=== PATIENT | male | born 1985 | race Caucasian/White ===

== ENCOUNTER 2016-12-08 12:28 | Emergency (ER) | payer SELFPAY ==
--- NOTE | 2016-12-08 13:04 | EDM.PDOC ---
ED HPI ENT - General Chief Complaint: ENT Problem Stated Complaint: TOOTH PAIN Time Seen by Provider: 12/08/16 12:44 Source of Information: Reports: Patient History Limitations: Reports: No limitations - History of Present Illness INITIAL COMMENTS - FREE TEXT/NARRATIVE: Patient presents for evaluation and treatment of left lower tooth pain. Patient reports pain for several weeks. The pain is currently 3 or 4/10. He reports it is on the left lower tooth. He became concerned today when he noticed some discoloration to the surrounding gums. States the pain has been going on for several weeks. He was seen by a provider about 3 weeks ago. He was started on a month of amoxicillin. States that he has one week left. He's been taking 500 mg twice a day. He was also given some Peridex mouthwash which he has been using on occasion. He has been utilizing [id number] Tylenol and Motrin for pain but continues to have discomfort that sometimes keeps him up at night. He reports pain into the left sinuses. Denies any earaches or pains, fevers, chills , nausea or vomiting. Patient is in [place] visiting family. He is from [place]. Plans to see dental as soon as he is able to return to [place]. He states this will be in about 2 weeks. - Related Data Allergies/ADRs: Allergies Allergy/AdvReac Type Severity Reaction Status Date / Time No Known Allergies Allergy Verified 12/08/16 12:33 Home Meds: Home Meds Amoxicillin 12/08/16 [History] traMADol [Ultram] 50 mg PO Q6H #20 tablet 12/08/16 [Rx] Past Medical History - Past Health History Medical/Surgical History: Denies Medical/Surgical History Social & Family History - Family History Family Medical History: Noncontributory - Tobacco Use Smoking Status *Q: Unknown Ever Smoked - Recreational Drug Use Recreational Drug Use: No ED ROS ENT - Review of Systems Review Of Systems: See Below Constitutional: Denies: fever, chills HEENT: Reports: Dental pain (left lower molars), Sinus problem (left). Denies: Ear pain GI/Abdominal: Denies: Nausea, Vomiting ED EXAM, ENT - Physical Exam Exam: See Below Exam Limited By: No limitations General Appearance: alert, WD/WN, no apparent distress Ears: normal external exam, normal canal, hearing grossly normal, normal TMs Mouth/Throat: Normal inspection, Normal lips, Dental pain (#19), Dental tenderness (#19), Other (multiple missing teeth with multiple carries and fillings; fillings in #19). No: Dental abcess, Gum swelling Respiratory/Chest: no respiratory distress, lungs clear, normal breath sounds Cardiovascular: normal peripheral pulses, regular rate, rhythm, no murmur Neurological: alert, oriented, normal cognition Psychiatric: normal affect, normal mood Skin: Warm, Dry, Normal color Course - Vital Signs Last Recorded V/S: Last Vital Signs Temp 36.9 C 12/08/16 12:34 Pulse 80 12/08/16 12:34 Resp 18 12/08/16 12:34 BP 110/76 12/08/16 12:34 Pulse Ox 100 12/08/16 12:34 Departure - Departure Time of Disposition: 12:59 Disposition: Home, Self-Care 01 Condition: good Clinical Impression: Dental caries extending into dentin Prescriptions: traMADol [Ultram] 50 mg PO Q6H #20 tablet Instructions: Dental Caries, [id number] Referrals: PCP,None [Primary Care Provider] - Forms: ED Department Discharge Additional Instructions: OTC tylenol or motrin as needed for pain. Tramadol as needed for severe pain. 1 tab PO every 4-[address] machinery within 12 hours of taking the tramadol. Follow-up with dental as soon as you are able to. Continue on amoxicillin as prescribed. Continue peridex as prescribed. Please return to ER should your symptoms change or worsen.
== END 2016-12-08 13:17 | disposition home or self-care (01) ==
LOC: JD.ED 12:28
DX: K02.9 Dental caries, unspecified (principal)
CPT/HCPCS: 99282; 99283

== ENCOUNTER 2017-04-11 22:37 | Emergency (ER) | payer SELFPAY ==
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
== END 2017-04-11 23:21 | disposition home or self-care (01) ==
LOC: JD.ED 22:37
CPT/HCPCS: 99282; 99283

== ENCOUNTER 2017-09-04 20:24 | Emergency (ER) | payer SELFPAY ==
[2017-09-04 20:37] VITALS: BP 142/95
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
== END 2017-09-04 23:32 | disposition home or self-care (01) ==
LOC: JD.ED 20:24
DX: K08.89 Other specified disorders of teeth and supporting structures (principal); Z76.5 Malingerer [conscious simulation]; Z79.899 Other long term (current) drug therapy
CPT/HCPCS: 87493; 99283